=== PATIENT | male | born 1970 | race Caucasian/White ===

== ENCOUNTER 2024-06-13 05:56 | Emergency (ER) | payer OTHER ==
[2024-06-13] MEDS ORDERED: Sodium Chloride 0.9% 1,000 ML ONE ×2 (06:04→07:35)
[2024-06-13] MEDS ORDERED: Ondansetron PF 4 MG/2 ML Vial ONE ×2 (06:04→07:44)
[2024-06-13] MEDS ORDERED: Morphine 4 MG/ML VIAL ONE (06:16)
[2024-06-13 06:31] LABS: Hematocrit 53.9 % (42.0-52.0); Hemoglobin 17.8 g/dL (14.0-18.0); Mean Corpuscular Hemoglobin 30.2 pg (27.0-31.0); Mean Corpuscular Volume 91.5 fl (78.0-98.0); Mean Platelet Volume 9.2 fL (7.4-10.4); Platelet Count 251 10x3/uL (130-400); RBC Distribution Width 11.6 % (11.5-14.5); Red Blood Cell (RBC) Count 5.89 mill/uL (4.70-6.10); White Blood Cell (WBC) Count 11.4 10x3/uL (4.8-10.8)
[2024-06-13 06:38] LABS: ALT (SGPT) 95 U/L (Less than 45); AST (SGOT) 44 U/L (11-34); Albumin 4.7 g/dL (3.1-4.5); Alkaline Phosphatase 52 U/L (40-110); Anion Gap 18 mmol/L (10-20); BUN (Urea Nitrogen) 17 mg/dL (8.4-25.7); Bilirubin, Total 0.9 mg/dL (0.3-1.2); Calc. Creatinine Clearance 0 mL/min (70-130); Calcium 10.3 mg/dL (7.8-10.44); Carbon Dioxide 18 mmol/L (22-29); Chloride 106 mmol/L (98-107); Estimated GFR 73; Globulin 3.6 g/dL (2.4-3.5); Glucose 127 mg/dL (70-105); Lipase 20 U/L (8-78); Potassium 4.3 mmol/L (3.5-5.1); Protein, Total 8.3 g/dL (6.0-8.3); Sodium 138 mmol/L (136-145)
[2024-06-13 06:39] LABS: MDiff Complete? YES; Manual Diff?? YES
[2024-06-13 06:40] LABS: Anisocytosis SLIGHT = 6-15 cells (100X) (0-5/hpf); Band 6 % (5-11); Lymphocytes 6 % (21-51); Monocytes 5 % (0-10); Neutrophil 83 % (42-75)
[2024-06-13 06:41] LABS: Platelet Adequacy Comment Appears Adequate
[2024-06-13 06:44] LABS: Troponin I Less than 0.010 ng/mL (< 0.028)
[2024-06-13] MEDS ORDERED: cefTRIAXone (ROCEPHIN) 1 GM VIAL ONE (07:35)
[2024-06-13] MEDS ORDERED: Sodium Chloride 0.9% 100 ML ONE (07:35)
[2024-06-13] MEDS ORDERED: Iopamidol 370 76% 100 ML VIAL ONE (09:00)
[2024-06-13] MEDS ORDERED: Dicyclomine 20 MG/2 ML VIAL ONE (09:27)
[2024-06-13 09:42] LABS: Bilirubin Negative (Negative); Blood, Urine Negative (Negative); CAUTI Indications for Culture Dysuria,urgency,freq; Clarity Clear (Clear); Glucose, Urine (Dipstick) Negative (Negative); Ketone, Urine Negative (Negative); Leukocyte Negative (Negative); Nitrite Negative (Negative); Protein, Urine (Dipstick) Negative (Neg-Trace); RBC/HPF 0-3 HPF (0-3); Urobilinogen 0.2 mg/dL (Less than 2); pH, Urine 5.5 (5.0-9.0)
[2024-06-13 09:43] LABS: Bacteria/HPF Rare-Few HPF (None Seen); Squamous Epithelial 0-3 HPF (0-3); Urine Culture Reflex No No
== END 2024-06-13 10:50 | disposition home or self-care (01) ==
LOC: MADERS 05:56
DX: R11.2 Nausea with vomiting, unspecified (principal); R07.89 Other chest pain; R19.7 Diarrhea, unspecified; M79.10 Myalgia, unspecified site; E78.5 Hyperlipidemia, unspecified
CPT/HCPCS: 71275; 74177; 80053; 81001; 83605; 83690; 83880; 84484; 85025; 96361; 96365; 96372; 96375; 96376; J0696; J2270; J2405; J7030; Q9967